=== PATIENT | female | born 1950 | race Caucasian/White ===

== ENCOUNTER 2017-02-05 05:41 | Day surgery (SDC) | payer MEDICARE ==
[~2017-02-05] VITALS: Ht 154.9 cm; Wt 100.5 kg
[~2017-02-05 05:41] MED LIST: ASPI81 PO; ATOR20TA86 PO; LISI-661 PO; RINGERS SOLUTION,LACTATED 1,000 ML IV ONE
[2017-02-05] MEDS ORDERED: DEXAMETHASONE SOD PHOS 4 MG/ML VIAL IVP ONE (05:42)
[2017-02-05] MEDS ORDERED: LIDOCAINE HCL/PF 2% 5 ML VIAL IM ONE (05:42)
[2017-02-05] MEDS ORDERED: FentaNYL CITRATE-PF 100 MCG/2 ML VIAL IVP ONE (05:42)
[2017-02-05] MEDS ORDERED: METOCLOPRAMIDE HCL 5 MG/ML 2 ML VIAL IVP ONE (05:42)
[2017-02-05] MEDS ORDERED: ONDANSETRON HCL 4 MG/2 ML VIAL IVP ONE (05:42)
[2017-02-05] MEDS ORDERED: MIDAZOLAM HCL 2 MG/2 ML VIAL IVP ONE (05:42)
[2017-02-05] MEDS ORDERED: PROPOFOL 1% 20 ML VIAL IVP ONE (05:42)
[2017-02-05] MEDS ORDERED: RINGERS SOLUTION,LACTATED 1,000 ML IV ONE (05:45)
[2017-02-05] MEDS ORDERED: CeFAZolin 1 GM/DEXTROSE 50 ML IV ONE ×2 (05:46→08:00)
[2017-02-05] MEDS ORDERED: LIDOCAINE HCL/PF 1% 30 ML VIAL ONE (06:51)
[2017-02-05] MEDS ORDERED: BUPIVACAINE HCL/PF 0.5% 30 ML VIAL ONE (06:51)
[2017-02-05] MEDS ORDERED: MEPERIDINE-PF 25 MG/ML SYRINGE IVP PRN (08:00)
[2017-02-05] MEDS ORDERED: OXYGEN THERAPY IH SCH (08:00)
[2017-02-05] MEDS ORDERED: HYDROmorphone 2 MG/ML SYRINGE IVP PRN (08:00)
[2017-02-05] MEDS ORDERED: FentaNYL CITRATE-PF 100 MCG/2 ML VIAL IVP PRN (08:00)
== END 2017-02-05 11:05 | disposition home or self-care (01) ==
LOC: SURGERY 05:41
PROVIDERS: ATTEND Podiatrist Foot & Ankle Surgery
DX: M20.42 Other hammer toe(s) (acquired), left foot (principal); M21.612 Bunion of left foot; I10 Essential (primary) hypertension; E78.5 Hyperlipidemia, unspecified; M17.0 Bilateral primary osteoarthritis of knee; Z79.01 Long term (current) use of anticoagulants; Z98.890 Other specified postprocedural states
CPT/HCPCS: 28285; 28295; 73630; 88304; 88311; C1713; C1769; J0690; J1100; J2250; J2405; J2704; J2765; J3010; J3490 ×3; J7120